=== PATIENT | male | born 1945 | race Caucasian/White ===

== ENCOUNTER 2024-06-28 08:37 | Emergency (ER) | payer MEDICARE, OTHER ==
[~2024-06-28] VITALS: Ht 170.2 cm; Wt 79.2 kg
[2024-06-28] MEDS ORDERED: OMEG10002 PO (08:53)
[2024-06-28] MEDS ORDERED: CIDA500T2 PO (08:53)
[2024-06-28] MEDS ORDERED: NIAC1000 PO (08:53)
[2024-06-28 09:52] LABS: BASO % 0.6 % (0.0-1.0); EOS % 0.8 % (0.0-3.0); HEMATOCRIT 46.2 % (42.0-52.0); HEMOGLOBIN 15.5 g/dl (13.5-17.5); LYMPH # 0.7 10^3/uL (1.5-5.0); MEAN CORPUSCULAR HEMOGLOBIN 29.7 pg (27.0-33.0); MEAN CORPUSCULAR HGB CONC 33.5 g/dl (32.0-36.5); MEAN CORPUSCULAR VOLUME 88.5 fl (80.0-96.0); MONO # 0.2 10^3/uL (0.0-0.8); MONO % 3.8 % (2.0-8.0); NEUTROPHILS % 80.6 % (36.0-66.0); PLATELET COUNT, AUTOMATED 172 10^3/uL (150-450); RED BLOOD COUNT 5.22 10^6/uL (4.30-6.10)
[2024-06-28] MEDS: NS 1,000 ML IV ONE (10:02)
[2024-06-28] MEDS: KETOROLAC 30 MG/ML 1ML VIAL IV ONE (10:02)
[2024-06-28 10:33] LABS: BLOOD UREA NITROGEN 15 MG/DL (9-23); CALCIUM LEVEL 8.8 MG/DL (8.3-10.6); CARBON DIOXIDE LEVEL 28 MMOL/L (20-31); CHLORIDE LEVEL 109 MMOL/L (98-107); CREATININE FOR GFR 0.99 MG/DL (0.70-1.30); GLOMERULAR FILTRATION RATE > 60.0 (>42); GLUCOSE, FASTING 131 MG/DL (74-106); POTASSIUM SERUM 4.6 MMOL/L (3.5-5.1); SODIUM LEVEL 141 MMOL/L (136-145)
[2024-06-28] MEDS ORDERED: HYDR-3713 PO (11:51)
[2024-06-28] MEDS ORDERED: ONDA-282 PO (11:51)
[2024-06-28] MEDS ORDERED: FLOM0.4C39 PO (11:51)
[2024-06-28] MEDS ORDERED: KETO10TAB PO (11:51)
[2024-06-28 12:13] VITALS: BP 153/82; TEMP 97.7; O2SAT 100
== END 2024-06-28 12:14 | disposition home or self-care (01) ==
LOC: M ED 08:37 → EDBD 08:37 → M ED 12:14
DX: K40.90 Unilateral inguinal hernia, without obstruction or gangrene, not specified as recurrent (principal); N20.0 Calculus of kidney; N23 Unspecified renal colic
CPT/HCPCS: 74176; 80048; 81001; 83605; 85025; 96361; 96374; 99284; J1885